=== PATIENT | female | born 1935 | race Caucasian/White ===

== ENCOUNTER 2024-01-14 10:36 | Day surgery (SDC) | payer MEDICARE, OTHER, SELFPAY ==
[2024-01-14] VITALS (11 sets, daily range): BP systolic 124–142; BP diastolic 62–75; BMI 26.1
[2024-01-14] MEDS: NSS 207 ML IV (11:14)
--- NOTE | 2024-01-14 12:12 | ITS.CL.CATH ---
[employer] - Catheterization
Cardiac Catheterization
Procedure Report:
CARDIAC CATHETERIZATION REPORT
Date of Procedure: 01/14/2024
Referring: Megan Lynn MD
Indication: Exertional dyspnea with abnormal stress test
HEMODYNAMIC DATA
AO: 134/72
LV: 134/20
LEFT VENTRICULOGRAPHY: Normal left ventricular wall motion with EF 59%
CORONARY ANGIOGRAPHY
Dominance: Right
Left Main: Normal
LAD: Trivial luminal irregularities. Interestingly, the apical occlusion from 2014 has completely healed and the vessel is angiographically normal at the former site of occlusion. 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
(SCAD) as a mechanism for her non-STEMI in 2014
Circumflex: Trivial luminal irregularities
RCA: Dominant vessel with trivial luminal irregularities
Closure Device: None-the procedure was performed via the right radial artery. The Yair's test was normal prior to the procedure.
Radiation (mGy): 149
DAP (cm2.Gy): 13.3
Fluoroscopy time: 1.3 minutes
CONCLUSIONS
1: Normal left ventricular wall motion with EF 59%
2: Elevated LVEDP
3. No significant CAD. As above, the apical LAD occlusion present in 2014 has completely healed suggestive of a diagnosis of SCAD at the time of her non-STEMI in 2014
Copy to: Megan Lynn MD and Niurka Vidales MD
Adriel Brooks MD, [facility], [facility]
[2024-01-14] MEDS: NSS 1000 IV (13:12)
== END 2024-01-14 15:26 | disposition home or self-care (01) ==
LOC: CATH 10:36
PROVIDERS: ATTENDING PHYSICIAN Internal Medicine Cardiovascular Disease; FAMILY PHYSICIAN Family Medicine; OTHER PHYSICIAN Internal Medicine Cardiovascular Disease
DX: R94.39 Abnormal result of other cardiovascular function study (principal); R06.09 Other forms of dyspnea; I25.2 Old myocardial infarction
CPT/HCPCS: 93458; C1760; C1894; Q9967